=== PATIENT | female | born 1965 | race Two or more races ===

== ENCOUNTER 2017-07-19 11:20 | Emergency (ER) | payer OTHER ==
[~2017-07-19] VITALS: Ht 154.9 cm; Wt 83.9 kg
[~2017-07-19 11:20] MED LIST: KETO10TA2 PO; TOPAMAX50 MG PO; TRAMADOL HCL-AP1 TAB PO
== END 2017-07-19 13:35 | disposition home or self-care (01) ==
LOC: ER 11:20
DX: L29.8 Other pruritus (principal)

== ENCOUNTER 2017-07-23 08:07 | Outpatient (CLI) | payer OTHER | END 2017-07-23 08:12 | disposition home or self-care (01) | LOC: LAB 08:07 | DX: L20.89 Other atopic dermatitis (principal); D50.8 Other iron deficiency anemias; E07.89 Other specified disorders of thyroid ==

== ENCOUNTER → 2017-08-15 | Outpatient (CLI) | payer OTHER | END | disposition home or self-care (01) | LOC: LAB 07:14 | DX: E03.8 Other specified hypothyroidism (principal); E78.2 Mixed hyperlipidemia; G40.309 Generalized idiopathic epilepsy and epileptic syndromes, not intractable, without status epilepticus ==

== ENCOUNTER → 2018-05-16 08:25 | Outpatient (CLI) | payer OTHER | END | disposition home or self-care (01) | LOC: LAB 08:25 | DX: L29.8 Other pruritus (principal); E03.8 Other specified hypothyroidism; D64.89 Other specified anemias ==

== ENCOUNTER → 2018-10-31 07:52 | Outpatient (CLI) | payer OTHER | END | disposition home or self-care (01) | LOC: LAB 07:52 | DX: L29.8 Other pruritus (principal); L30.8 Other specified dermatitis ==

== ENCOUNTER 2018-12-26 08:40 | Outpatient (CLI) | payer OTHER | END 2018-12-26 08:44 | disposition home or self-care (01) | LOC: LAB 08:40 | DX: N39.0 Urinary tract infection, site not specified (principal) ==

== ENCOUNTER 2019-08-17 06:52 | Outpatient (CLI) | payer OTHER | END 2019-08-17 07:09 | disposition home or self-care (01) | LOC: LAB 06:52 | PROVIDERS: ATTEND Psychiatry & Neurology Neurology | DX: E03.8 Other specified hypothyroidism (principal); E78.2 Mixed hyperlipidemia; G40.A09 Absence epileptic syndrome, not intractable, without status epilepticus; N39.0 Urinary tract infection, site not specified ==

== ENCOUNTER → 2019-09-04 07:54 | Outpatient (CLI) | payer OTHER | END | disposition home or self-care (01) | LOC: LAB 07:54 | PROVIDERS: ATTEND Psychiatry & Neurology Neurology | DX: E03.8 Other specified hypothyroidism (principal); G40.A09 Absence epileptic syndrome, not intractable, without status epilepticus ==

== ENCOUNTER 2019-10-30 09:47 | Outpatient (CLI) | payer OTHER | END 2019-10-30 15:00 | disposition home or self-care (01) | LOC: LAB 09:47 | PROVIDERS: ATTEND Obstetrics & Gynecology | DX: E03.0 Congenital hypothyroidism with diffuse goiter (principal); E78.00 Pure hypercholesterolemia, unspecified; N39.0 Urinary tract infection, site not specified; E55.9 Vitamin D deficiency, unspecified; K92.89 Other specified diseases of the digestive system; E11.9 Type 2 diabetes mellitus without complications ==

== ENCOUNTER → 2020-02-09 08:44 | Outpatient (CLI) | payer OTHER | END | disposition home or self-care (01) | LOC: LAB 08:44 | PROVIDERS: ATTEND Urology | DX: N39.0 Urinary tract infection, site not specified (principal) ==

== ENCOUNTER 2020-06-24 08:26 | Outpatient (CLI) | payer OTHER | END 2020-06-24 08:43 | disposition home or self-care (01) | LOC: LAB 08:26 | PROVIDERS: ATTEND Internal Medicine Gastroenterology | DX: K52.89 Other specified noninfective gastroenteritis and colitis (principal); E78.49 Other hyperlipidemia; E03.8 Other specified hypothyroidism ==

== ENCOUNTER → 2020-07-20 07:34 | Outpatient (CLI) | payer OTHER | END | disposition home or self-care (01) | LOC: LAB 07:34 | PROVIDERS: ATTEND Psychiatry & Neurology Neurology | DX: A09 Infectious gastroenteritis and colitis, unspecified (principal); F79 Unspecified intellectual disabilities; F90.2 Attention-deficit hyperactivity disorder, combined type; E03.9 Hypothyroidism, unspecified; E78.2 Mixed hyperlipidemia; G40.909 Epilepsy, unspecified, not intractable, without status epilepticus ==

== ENCOUNTER 2021-06-13 08:36 | Outpatient (CLI) | payer OTHER | END 2021-06-13 08:37 | disposition home or self-care (01) | LOC: LAB 08:36 | PROVIDERS: ATTEND Urology | DX: N39.0 Urinary tract infection, site not specified (principal) ==

== ENCOUNTER 2022-05-02 09:09 | Outpatient (CLI) | payer OTHER ==
[~2022-05-02 09:09] MED LIST changes: +ARIPIPRAZOLE2 MG PO; +ATOMOXETINE HCL60 MG PO; +KEPPRA XR500 MG PO; +ROSUVASTATIN CA20 MG PO
== END 2022-05-02 09:16 | disposition home or self-care (01) ==
LOC: RAD 09:09
PROVIDERS: ATTEND Internal Medicine Pulmonary Disease
DX: R05.8 Other specified cough (principal)

== ENCOUNTER 2022-09-24 07:45 | Outpatient (CLI) | payer OTHER | END 2022-09-24 07:47 | disposition home or self-care (01) | LOC: LAB 07:45 | PROVIDERS: ATTEND Internal Medicine Pulmonary Disease | DX: R05.3 Chronic cough (principal); J45.30 Mild persistent asthma, uncomplicated; E83.9 Disorder of mineral metabolism, unspecified ==

== ENCOUNTER 2022-09-24 08:13 | Outpatient (CLI) | payer OTHER | END 2022-09-24 08:21 | disposition home or self-care (01) | LOC: RAD 08:13 | PROVIDERS: ATTEND Internal Medicine Pulmonary Disease | DX: R05.3 Chronic cough (principal) ==

== ENCOUNTER 2024-10-13 08:03 | Outpatient (CLI) | payer OTHER | END 2024-10-13 08:04 | disposition home or self-care (01) | LOC: RAD 08:03 | PROVIDERS: ATTEND Obstetrics & Gynecology | DX: R31.0 Gross hematuria (principal) ==